=== PATIENT | female | born 1945 | race Caucasian/White ===

== ENCOUNTER 2017-02-27 17:39 | Emergency (ER) | payer OTHER ==
[~2017-02-27] VITALS: Ht 152.4 cm; Wt 81.5 kg
[~2017-02-27 17:39] MED LIST: ACID REDUCER20 MG PO; AMLODIPINE BESYL5 MG PO; ASPIRIN325 MG PO; BENTYL20 MG PO; CALCIUM 500 MG1 EACH PO; COLACE100 MG PO; DAILY VALUE1 EACH PO; FUROSEMIDE20 MG PO; KLOR-CON 1010 MEQ PO; LORTAB 5-325 M1 EACH PO; LOSARTAN POTAS100 MG PO; LOVAZA1 GM PO; MICARDIS40 MG PO; NORCO 5/3251 TABLET PO; NORVASC5 MG PO; RANITIDINE HCL150 MG PO; TORSEMIDE20 MG PO; VITAMIN B-650 MG PO; VITAMIN B12 100MCG PO; VITAMIN D31000 UNI2 PO; XOPENEX HF200 INHALA IH; ZETIA10 MG PO; ZOFRAN ODT8 MG PO
[2017-02-27] MEDS ORDERED: OMEGA-3 ACID ETH1 GM PO (17:46)
[2017-02-27] MEDS ORDERED: OMEPRAZOLE40 M1 PO (17:47)
[2017-02-27] MEDS ORDERED: ASPIRIN81 M2 PO (17:48)
[2017-02-27] MEDS ORDERED: PROBIOTIC1 EAC1 PO (17:48)
[2017-02-27 18:57] LABS: BASOPHIL (%) 0.4 % (0-1); EOSINOPHIL (%) 1.8 % (0-5); EOSINOPHIL COUNT 0.1 K/uL (0-0.3); HEMATOCRIT 36.9 % (36.0-46.0); HEMOGLOBIN 12.9 G/DL (11.9-15.5); IMMATURE GRANULOCYTE (%) 0.2 % (0.0-0.7); LYMPHOCYTE COUNT 1.9 K/uL (1.0-2.8); MCH 29.4 PG (29.0-34.0); MCV 84.1 FL (83-99); MONOCYTE (%) 14.6 % (3-12); MONOCYTE COUNT 0.7 K/uL (0-0.8); NEUTROPHIL COUNT 1.8 K/uL (1.8-6.4); PLATELET COUNT 206 K/uL (156-360); RBC DIS.WIDTH-CV 12.5 % (11.8-14.6); RBC DIS.WIDTH-SD 37.9 % (39-53); RED BLOOD COUNT 4.39 M/uL (3.80-5.20); WHITE BLOOD COUNT 4.5 K/uL (4.1-10.2)
[2017-02-27 19:08] LABS: INTER. NORMALIZED RATIO 1.1
[2017-02-27 19:10] LABS: CHLORIDE 105 mEq/L (99-109); POTASSIUM 3.3 mEq/L (3.7-5.4); PTT 27.7 SEC (25-37); SODIUM 142 mEq/L (136-147)
[2017-02-27 19:11] LABS: MAGNESIUM 1.9 mg/dL (1.3-2.7)
[2017-02-27 19:12] LABS: GLUCOSE 93 mg/dL (70-99)
[2017-02-27 19:16] LABS: CREATININE 0.7 mg/dL (0.6-1.3); GFR ESTIMATE (CALCULATED) > 59 mL/min/
[2017-02-27 19:17] LABS: UREA NITROGEN (BUN) 13 mg/dL (9-23)
[2017-02-27 19:22] LABS: TROP-I INTERPRETATION NEGATIVE; TROPONIN-I < 0.01 ng/mL (0.0-0.30)
[2017-02-27] MEDS ORDERED: ZITHROMAX Z-PA250 MG PO (21:05)
[2017-02-27 21:29] VITALS: BP 132/80
== END 2017-02-27 21:30 | disposition home or self-care (01) ==
LOC: EME 17:39
PROVIDERS: Emergency Medicine
DX: J20.9 Acute bronchitis, unspecified (principal); J45.909 Unspecified asthma, uncomplicated; I10 Essential (primary) hypertension; K21.9 Gastro-esophageal reflux disease without esophagitis; Z88.1 Allergy status to other antibiotic agents; Z88.8 Allergy status to other drugs, medicaments and biological substances
CPT/HCPCS: 71045; 71275; 80048; 83735; 84484; 85025; 85610; 85730; 93005; 99281; 99283

== ENCOUNTER 2017-04-18 02:36 | Inpatient (IN) | payer OTHER ==
[~2017-04-18] VITALS: Ht 152.4 cm; Wt 84.0 kg
[~2017-04-18 02:36] MED LIST changes: +ASPIRIN81 M2 PO; +OMEGA-31000 M1 PO; +OMEPRAZOLE40 M1 PO; +PROBIOTIC1 EAC1 PO; +ZITHROMAX Z-PA250 MG PO
[2017-04-18 03:07] LABS: HEMATOCRIT 38.9 % (36.0-46.0); HEMOGLOBIN 13.5 G/DL (11.9-15.5); MCH 29.9 PG (29.0-34.0); MCHC 34.7 G/DL (30.0-36.0); MCV 86.3 FL (83-99); PLATELET COUNT 252 K/uL (156-360); RBC DIS.WIDTH-CV 12.6 % (11.8-14.6); RBC DIS.WIDTH-SD 39.8 % (39-53); RED BLOOD COUNT 4.51 M/uL (3.80-5.20); WHITE BLOOD COUNT 6.8 K/uL (4.1-10.2)
[2017-04-18 03:19] LABS: CHLORIDE 104 mEq/L (99-109); POTASSIUM 3.3 mEq/L (3.7-5.4); SODIUM 144 mEq/L (136-147)
[2017-04-18 03:21] LABS: GLUCOSE 101 mg/dL (70-99)
[2017-04-18 03:24] LABS: CREATININE 0.8 mg/dL (0.6-1.3); GFR ESTIMATE (CALCULATED) > 59 mL/min/
[2017-04-18 03:25] LABS: UREA NITROGEN (BUN) 15 mg/dL (9-23)
[2017-04-18 03:31] LABS: TROP-I INTERPRETATION NEGATIVE; TROPONIN-I < 0.01 ng/mL (0.0-0.30)
[2017-04-18] MEDS ORDERED: CALCIUM500 M4 PO (05:20)
[2017-04-18] MEDS ORDERED: VITAMIN D31000 UNI2 PO (05:21)
[2017-04-18] MEDS ORDERED: COZAAR50 MG PO (05:37)
[2017-04-18 05:57] LABS: MAGNESIUM 2.1 mg/dL (1.3-2.7)
[2017-04-18 06:01] LABS: PHOSPHORUS 3.1 mg/dL (2.5-4.9)
[2017-04-18 06:01] LABS: PTT 29.7 SEC (25-37)
[2017-04-18 08:33] LABS: THYROTROPIN (TSH) 6.8 MIU/L (0.4-5.5)
[2017-04-18 12:30] VITALS: BP 147/78
[2017-04-18 14:42] VITALS: BP 127/73
[2017-04-18 16:11] LABS: TROP-I INTERPRETATION NEGATIVE; TROPONIN-I 0.01 ng/mL (0.0-0.30)
[2017-04-18 20:14] VITALS: BP 113/64
[2017-04-19 00:03] VITALS: BP 120/67
[2017-04-19 04:09] VITALS: BP 118/69
[2017-04-19 07:40] VITALS: BP 133/87
[2017-04-19 08:17] LABS: HEMOGLOBIN 11.7 G/DL (11.9-15.5); MCH 29.2 PG (29.0-34.0); MCHC 33.4 G/DL (30.0-36.0); MCV 87.3 FL (83-99); PLATELET COUNT 212 K/uL (156-360); RBC DIS.WIDTH-CV 12.9 % (11.8-14.6); RBC DIS.WIDTH-SD 41.1 % (39-53); RED BLOOD COUNT 4.01 M/uL (3.80-5.20); WHITE BLOOD COUNT 4.7 K/uL (4.1-10.2)
[2017-04-19 08:51] LABS: CHLORIDE 105 MEQ/L (99-109); CREATININE 0.7 MG/DL (0.6-1.3); GFR ESTIMATE (CALCULATED) > 59 mL/min/; GLUCOSE 103 mg/dL (70-99); POTASSIUM 4.2 MEQ/L (3.7-5.4); SODIUM 138 MEQ/L (136-147); UREA NITROGEN (BUN) 15 mg/dL (9-23)
[2017-04-19 08:52] VITALS: BP 110/70
[2017-04-19 11:27] VITALS: BP 110/70
[2017-04-19 13:06] LABS: D-DIMER ELISA < 150.00 ng/mLDDU (<230)
[2017-04-19 13:15] LABS: HDL CHOLESTEROL 52 MG/DL (Desirable>=50); LDL CHOLESTEROL 100 mg/dL (Desirable<100); NON-HDL CHOLESTEROL 134 mg/dL (Desirable<160); TOTAL CHOLESTEROL 186 mg/dL (Desirable<200); TRIGLYCERIDES 171 MG/DL (Normal: <150)
[2017-04-19] MEDS ORDERED: ELIQUIS5 MG PO (15:30)
[2017-04-19] MEDS ORDERED: DILTIAZEM 24HR240 MG PO (16:24)
[2017-04-19 16:26] VITALS: BP 106/61
== END 2017-04-19 17:15 | disposition home or self-care (01) | DRG 310 ==
LOC: EME 02:36 → 4EAST 04:31 → EDOF 04:31 → ENRESERV 04:32 → 4EAST 12:36
PROVIDERS: Internal Medicine; Physician Assistant Medical
DX: I48.91 Unspecified atrial fibrillation (principal); R09.02 Hypoxemia; E87.6 Hypokalemia; E78.5 Hyperlipidemia, unspecified; I10 Essential (primary) hypertension; J44.9 Chronic obstructive pulmonary disease, unspecified; I34.0 Nonrheumatic mitral (valve) insufficiency; K21.9 Gastro-esophageal reflux disease without esophagitis; G47.33 Obstructive sleep apnea (adult) (pediatric); E66.9 Obesity, unspecified; Z68.35 Body mass index [BMI] 35.0-35.9, adult; Z87.11 Personal history of peptic ulcer disease; Z82.49 Family history of ischemic heart disease and other diseases of the circulatory system; Z82.41 Family history of sudden cardiac death
CPT/HCPCS: 71046; 80048; 80061; 83735; 83880; 84100; 84132 91; 84443; 84484; 85027; 85379; 85610; 85730; 93005; 93306; 94640; 94660; 94760; 99202; 99281; 99285; J7030

== ENCOUNTER 2017-04-24 11:42 | Emergency (ER) | payer OTHER ==
[~2017-04-24] VITALS: Ht 154.9 cm; Wt 80.3 kg
[~2017-04-24 11:42] MED LIST changes: +CALCIUM500 M4 PO; +COZAAR50 MG PO; +DILTIAZEM 24HR240 MG PO; +ELIQUIS5 MG PO
[2017-04-24 12:19] LABS: HEMATOCRIT 36.5 % (36.0-46.0); HEMOGLOBIN 12.8 G/DL (11.9-15.5); MCH 30.3 PG (29.0-34.0); MCHC 35.1 G/DL (30.0-36.0); MCV 86.5 FL (83-99); PLATELET COUNT 224 K/uL (156-360); RBC DIS.WIDTH-CV 12.6 % (11.8-14.6); RBC DIS.WIDTH-SD 39.3 % (39-53); RED BLOOD COUNT 4.22 M/uL (3.80-5.20); WHITE BLOOD COUNT 5.1 K/uL (4.1-10.2)
[2017-04-24 12:28] LABS: CHLORIDE 104 mEq/L (99-109); POTASSIUM 3.9 mEq/L (3.7-5.4); SODIUM 141 mEq/L (136-147)
[2017-04-24 12:30] LABS: GLUCOSE 92 mg/dL (70-99)
[2017-04-24 12:33] LABS: CREATININE 0.8 mg/dL (0.6-1.3); GFR ESTIMATE (CALCULATED) > 59 mL/min/
[2017-04-24 12:34] LABS: UREA NITROGEN (BUN) 15 mg/dL (9-23)
[2017-04-24 12:40] LABS: TROP-I INTERPRETATION NEGATIVE; TROPONIN-I < 0.01 ng/mL (0.0-0.30)
[2017-04-24 15:43] LABS: TROP-I INTERPRETATION NEGATIVE; TROPONIN-I < 0.01 ng/mL (0.0-0.30)
[2017-04-24 16:30] VITALS: BP 119/65
== END 2017-04-24 16:43 | disposition home or self-care (01) ==
LOC: EME 11:42
PROVIDERS: Emergency Medicine Emergency Medical Services
DX: R07.89 Other chest pain (principal); R29.898 Other symptoms and signs involving the musculoskeletal system; I48.91 Unspecified atrial fibrillation; Z79.01 Long term (current) use of anticoagulants; I10 Essential (primary) hypertension; J45.909 Unspecified asthma, uncomplicated; K21.9 Gastro-esophageal reflux disease without esophagitis; Z88.8 Allergy status to other drugs, medicaments and biological substances
CPT/HCPCS: 71046; 80048; 84484; 85027; 93005; 99281; 99285

== ENCOUNTER 2017-04-27 07:33 | Day surgery (SDC) | payer OTHER | END 2017-04-27 14:55 | disposition home or self-care (01) | LOC: CATH 07:33 | DX: R07.89 Other chest pain (principal); I48.0 Paroxysmal atrial fibrillation; R06.00 Dyspnea, unspecified; I10 Essential (primary) hypertension; E78.2 Mixed hyperlipidemia; G47.33 Obstructive sleep apnea (adult) (pediatric); Z68.33 Body mass index [BMI] 33.0-33.9, adult; Z82.49 Family history of ischemic heart disease and other diseases of the circulatory system | CPT/HCPCS: C1769; C1887; J1644; J2250; J3010; J7040 ==